=== PATIENT | male | born 1980 | race Caucasian/White ===

== ENCOUNTER 2016-12-25 23:24 | Emergency (ER) | payer BC, OTHER ==
[2016-12-26] MEDS ORDERED: ONDANSETRON HCL/PF 2 MG/ML VIAL IV ONE (00:10)
[2016-12-26] MEDS ORDERED: KETOROLAC TROMETHAMINE 30 MG/ML VIAL IV ONE (00:12)
[2016-12-26] MEDS ORDERED: NORMAL SALINE 1,000 ML IV ONE (00:16)
--- NOTE | 2016-12-26 00:17 | ERNOTE ---
Allergy Symptoms - ER Presenting Symptoms: other Time Seen by Provider: 12/26/16 00:03 Source: patient Exam Limitations: no limitations Immunizations: IMMUNIZATION HX Immunizations Up to Date Yes History of Influenza Vaccine No Allergies/Adverse Reactions: Allergies fentanyl Allergy (Verified 11/15/13 14:34) mercaptopurine Allergy (Verified 12/25/16 23:35) prochlorperazine edisylate [From Compazine] Allergy (Verified 11/15/13 14:34) prochlorperazine maleate [From Compazine] Allergy (Verified 11/15/13 14:34) promethazine HCl [From Phenergan] Allergy (Verified 11/15/13 14:33) Home Medications: HOME MEDICATIONS SUMAtriptan SUCCINATE [Imitrex] 25 mg PO PRN 11/15/13 [Last Taken Unknown] Adalimumab [Humira] 40 mg SQ Q14D 12/25/16 [Last Taken Unknown] Bisoprolol Fumarate 5 mg PO DAILY 12/25/16 [Last Taken Unknown] Cholecalciferol (Vitamin D3) [Vitamin D3] 50,000 unit PO Q7D 12/25/16 [Last Taken Unknown] Omeprazole 20 mg PO DAILY 12/25/16 [Last Taken Unknown] clonazePAM [Klonopin] 0.5 mg PO DAILY 12/25/16 [Last Taken Unknown] predniSONE [Prednisone] 2 tab PO DAILY 12/25/16 [Last Taken Unknown] - History of Present Illness Narrative: abdominal pain, dry mouth, headache. Started after he began on hyoscyamine today. Timing: Present: getting worse Treatment PHY THERAPIST:: none Location skin rash/itching: Present: none Location swelling: Present: none Identified cause?: Yes Review of Systems - Review of Systems Constitutional: Present: recent illness - flare of Crohns . Absent: fever, chills EYE: Present: no symptoms reported ENT: Present: no symptoms reported Respiratory: Absent: shortness of breath Cardiology: Absent: chest pain Gastrointestinal/Abdominal: Present: nausea, diarrhea, abdominal pain Genitourinary: Present: no symptoms reported Musculoskeletal: Present: no symptoms reported Skin: Present: no symptoms reported Neurological: Present: headache Endocrine: Present: no symptoms reported Hematologic/Lymphatic: Present: no symptoms reported Psych: Present: no symptoms reported - Patient's Past Medical History Patient History - Medical: Other Patient History - Cardiac/Respiratory: No pertinent hx Patient History - Cancer: No Hx of Cancer Patient History - Surgical Procedures: Hernia Repair Patient History - Other: None - Social History Living Situations: home Abuse History: No History of abuse Psych History: Hx of Anxiety Smoking Status: Former smoker Have you smoked in the past 12 months: No Do you dip or chew tobacco: Yes Alcohol Use: rarely Drug Use: none - Immunizations Immunizations Up to Date: Yes History of Influenza Vaccine: No Physical Exam - Physical Exam General Appearance: Present: wd/wn, alert, mild distress Head Exam: Present: normal inspection, no evidence of injury Eye Exam: Normal inspection: bilateral Neck: Present: normal inspection, nontender, supple Respiratory: Present: no respiratory distress, no accessory muscle use, lungs clear Cardiovascular/Chest: Present: regular rate, rhythm, no murmur Gastrointestinal/Abdominal: Present: normal bowel sounds, nondistended, soft, tenderness - diffuse Back Exam: Present: normal inspection, no CVA tenderness Extremity Exam: Present: normal inspection Neurological Exam: Present: alert, oriented, no motor/sensory deficits Skin Exam: Present: normal color, warm/dry Lymphatic Exam: Present: no adenopathy ED Progress - Results and Orders Patient's Lab Results:: I have reviewed the patient's lab results. Results and Orders: Laboratory Tests 12/26/16 12/26/16 12/26/16 00:32 00:32 00:34 WBC 9.6 Hgb 15.3 Hct 44.6 Plt Count 246 Sodium 138 Potassium 3.7 Chloride 100 Carbon Dioxide 29.0 BUN 19 Creatinine 1.05 Random Glucose 99 Calcium 9.0 Total Bilirubin 0.5 AST 6 ALT 25 Alkaline Phosphatase 53 Total Protein 8.0 Albumin 4.3 Amylase 52 Lipase 186 Urine Color Yellow Urine Appearance Clear Urine pH 6.0 Ur Specific Frederic 1.010 Urine Protein Negative Urine Glucose (UA) Negative Urine Ketones Negative Urine Blood Negative Urine Nitrate Negative Urine Bilirubin Negative Urine Urobilinogen Normal Ur Leukocyte Esterase Negative Urine RBC None seen Urine WBC None seen Ur Epithelial Cells None seen Urine Bacteria None seen Urine Culture Comments No culture indicated - Vital Signs Patient's Vital Signs:: I have reviewed the patient's vital signs. Vital Signs: Vital Signs 12/25/16 12/25/16 23:27 23:33 Temperature 36.3 C L Pulse Rate 79 Respiratory 18 18 Rate Blood Pressure 121/83 O2 Sat by Pulse 99 99 Oximetry - X-Ray X-Ray #1 X-Ray: abdomen Interpretation: Interp. by me X-ray Comments: moderate stool retention, no evidence of obstruction - Progress/Reassessment Chief Complaint: Allergic Reaction Departure Clinical Impression: Adverse effect of gastrointestinal drug Qualifiers: Encounter type: initial encounter Qualified Code(s): T47.95XA - Adverse effect of unspecified agents primarily affecting the gastrointestinal system, initial encounter - Departure Disposition: Home Follow Up Needed Condition: Good Additional Instructions: Do not take any more hyoscyamine until you discuss dosing change with your provider. Effects should be worn off by tomorrow. You may need to use a gentle laxative like miralax or fiber laxative with plenty of water to help your bowel clear out. Referrals: Kiah Mariscal ARNP [Primary Care Provider] -
[2016-12-26 00:39] LABS: Hematocrit 44.6 % (42.0-52.0); Hemoglobin 15.3 gm/dL (13.5-18.0); Mean Cell Volume 87.1 fl (78-100); Mean Corpuscular Hemoglobin 29.9 pg (27-31); Mean Corpuscular Hgb Conc 34.3 g/dl (32-36); Mean Platelet Volume 10.9 fl (6.0-9.5); Neutrophil # 6.6 K/mm3 (1.3-6.0); Neutrophil % 68.3 % (42-75.0); Platelet Count 246 K/mm3 (150-450); Red Blood Count 5.12 M/mm3 (4.7-6.0); Red Cell Distribution Width 12.9 % (11.5-14.0); White Blood Count 9.6 K/mm3 (4.0-10.5)
[2016-12-26 00:43] VITALS: BP 119/84
[2016-12-26] MEDS ORDERED: ONDANSETRON HCL/PF 2 MG/ML VIAL ONE (00:43)
[2016-12-26] MEDS ORDERED: KETOROLAC TROMETHAMINE 30 MG/ML VIAL ONE (00:43)
[2016-12-26 00:45] LABS: Urine Bilirubin Negative (NEGATIVE); Urine Blood Negative /ul (NEGATIVE); Urine Ketone Negative (NEGATIVE); Urine Nitrite Negative (NEGATIVE); Urine Protein Negative (NEGATIVE); Urine Urobilinogen Normal (NORMAL)
[2016-12-26 00:53] LABS: Urine Appearance Clear; Urine Bacteria None Seen; Urine Color Yellow; Urine RBC None Seen /hpf (0-5); Urine WBC None Seen /hpf (0-5)
[2016-12-26 01:07] LABS: Albumin * 4.3 gm/dl (3.4-5.0); Anion Gap 12.7 mmol/L (6.8-13.8); BUN/Creatinine Ratio 18.1 (9.0-21.6); Bilirubin, Total 0.5 mg/dL (0.0-1.1); Ca. Corrected For Albumin 8.4 mg/dL (8.4-10.2); Potassium 3.7 mmol/L (3.4-4.6)
== END 2016-12-26 01:57 | disposition home or self-care (01) ==
LOC: ER 23:24
DX: T47.9 Poisoning by, adverse effect of and underdosing of unspecified agents primarily affecting the gastrointestinal system (principal); Z87.891 Personal history of nicotine dependence; F41.9 Anxiety disorder, unspecified
CPT/HCPCS: 36415; 74020; 80053; 81001; 82150; 83690; 85025; 96374; 99284; J2405

== ENCOUNTER 2017-03-03 14:04 | Emergency (ER) | payer OTHER ==
[2017-03-03] MEDS ORDERED: KETOROLAC TROMETHAMINE 60 MG/2 ML VIAL IM ONE ×2 (14:17→14:19)
--- NOTE | 2017-03-03 14:38 | ERNOTE ---
Upper Extremity HPI - Narrative Date of Service: 03/03/17 - General Extremities Pain Location: hand: right Time Seen by Provider: 03/03/17 14:13 Source: patient Exam Limitations: no limitations - Immun/Allergies/Home Medications Immunizations: IMMUNIZATION HX Immunizations Up to Date Yes History of Influenza Vaccine No Hx Pneumococcal Vaccination No Allergies/Adverse Reactions: Allergies Allergy/AdvReac Type Severity Reaction Status Date / Time hyoscyamine Allergy Intermediate Other Verified 03/03/17 14:12 fentanyl Allergy Verified 03/03/17 14:12 mercaptopurine Allergy Verified 03/03/17 14:12 prochlorperazine edisylate Allergy Verified 03/03/17 14:12 [From Compazine] prochlorperazine maleate Allergy Verified 03/03/17 14:12 [From Compazine] promethazine HCl Allergy Verified 03/03/17 14:12 [From Phenergan] Home Medications: HOME MEDICATIONS SUMAtriptan SUCCINATE [Imitrex] 25 mg PO PRN 11/15/13 [Last Taken Unknown] Adalimumab [Humira] 40 mg SQ Q14D 12/25/16 [Last Taken Unknown] Bisoprolol Fumarate 5 mg PO DAILY 12/25/16 [Last Taken Unknown] Cholecalciferol (Vitamin D3) [Vitamin D3] 50,000 unit PO Q7D 12/25/16 [Last Taken Unknown] Omeprazole 20 mg PO DAILY 12/25/16 [Last Taken Unknown] clonazePAM [Klonopin] 0.5 mg PO DAILY 12/25/16 [Last Taken Unknown] Naproxen [Naprosyn] 500 mg PO BID PRN #60 tab 03/03/17 [Last Taken Unknown] - History of Present Illness Narrative: Pt. comes in with c/o L dorsal hand pain after he hit it with a mini sledge hammer just prior to arrival. Pt. denies any numbness tingling, SOB, CP, NVD, alleviating factors but states that movement exacerbates the pain. Occurred: just prior to arrival Location of Incident: home Severity: mild Method of Injury: Reports: direct blow Loss of Consciousness: Reports: no loss of consciousness Modifying Factors - (Improves): Reports: other - denies Modifying Factors - (Worsens): Reports: movement Associated Symptoms: Denies: tingling, weakness, numbness distally, loss of feeling, loss of power (rt arm), loss of power (lt arm) Other Injuries: Reports: none Prior Treament: Denies: recently seen, treated by physician, recently hospitalized, similar symptoms before, currently on antibiotics Review of Systems - Review of Systems Constitutional: Present: no symptoms reported. Absent: recent illness, fever, chills, weakness, fatigue, malaise EYE: Present: no symptoms reported ENT: Present: no symptoms reported Respiratory: Present: no symptoms reported. Absent: shortness of breath, cough , wheezing Cardiology: Present: no symptoms reported. Absent: chest pain, palpitations, edema Gastrointestinal/Abdominal: Present: no symptoms reported. Absent: nausea, vomiting, diarrhea, abdominal pain Genitourinary: Present: no symptoms reported Musculoskeletal: Present: joint pain - L hand. Absent: back pain, neck pain Neurological: Present: no symptoms reported. Absent: headache, dizziness/light- headedness, numbness, tingling All Other Systems: All systems neg except as marked - Patient's Past Medical History Patient History - Medical: Anxiety, Migraines Patient History - Cardiac/Respiratory: Hypertension Patient History - Cancer: No Hx of Cancer Patient History - Surgical Procedures: T & A, Hernia Repair Patient History - Other: None - Social History Living Situations: home Abuse History: No History of abuse Psych History: Hx of Anxiety Smoking Status: Never smoker Alcohol Use: rarely Drug Use: none, benzodiazepine - Immunizations Immunizations Up to Date: Yes Hx Pneumococcal Vaccination: No History of Influenza Vaccine: No Physical Exam - Physical Exam General Appearance: Present: wd/wn, alert, no apparent distress Head Exam: Present: normal inspection, no evidence of injury Eye Exam: Normal inspection: bilateral Respiratory: Present: no respiratory distress, normal breath sounds, no accessory muscle use, chest nontender, lungs clear Cardiovascular/Chest: Present: regular rate, rhythm, no murmur, normal peripheral pulses Back Exam: Present: normal inspection, normal range of motion, no CVA tenderness , no vertebral tenderness Extremity Exam: Present: decreased range of motion - L third and fourth flexion only to 90 degrees, other - pain with palptaion on mid and distal third and fouth matacarpal no tenderness of snuff bow or first second and fifth matacarpal Neurological Exam: Present: alert, oriented, normal mood/affect, no motor/ sensory deficits Skin Exam: Present: normal color, warm/dry. Absent: pallor, skin rash ED Progress - Vital Signs Patient's Vital Signs:: I have reviewed the patient's vital signs. Vital Signs: Vital Signs 03/03/17 14:08 Temperature 36.8 C Pulse Rate 98 Respiratory 17 Rate Blood Pressure 159/97 O2 Sat by Pulse 93 Oximetry - X-Ray X-Ray #1 X-Ray: hand Interpretation: Reviewed by me X-ray Comments: no obvious acute osseous abnormality. - Progress/Reassessment Chief Complaint: Hand Injury/Pain Departure Clinical Impression: Hand contusion Qualifiers: Encounter type: initial encounter Laterality: left Qualified Code(s): S60.222A - Contusion of left hand, initial encounter - Departure Disposition: Home self-care Condition: Good Instructions: Hand Contusion, [id number] Additional Instructions: Please take naproxen and use ice for pain please leave jo ann wrapped until pain is resolved. Referrals: Kiah Mariscal ARNP [Primary Care Provider] - Prescriptions: Naproxen [Naprosyn] 500 mg PO BID PRN #60 tab PRN Reason: Pain
[2017-03-03] MEDS ORDERED: ACETAMINOPHEN 500 MG TABLET PO ONE (15:09)
[2017-03-03 15:13] VITALS: BP 144/86
== END 2017-03-03 15:30 | disposition home or self-care (01) ==
LOC: ER 14:04
DX: S60.222A Contusion of left hand, initial encounter (principal); X58.XXXA Exposure to other specified factors, initial encounter; Y93.H3 Activity, building and construction; Y92.009 Unspecified place in unspecified non-institutional (private) residence as the place of occurrence of the external cause